=== PATIENT | female | born 1960 | race Hispanic/Latino ===

== ENCOUNTER 2020-09-13 11:20 | Emergency (ER) | payer SELFPAY ==
[2020-09-13 14:15] LABS: Absolute Lymphocytes (CBC) 0.6 K/uL (0.7-4.9); Basophils % 0.5 % (0-1.3); Hematocrit 32.9 % (36.0-45.0); Lymphocytes % 12.2 % (15.3-44.8); MPV 8.7 fL (7.6-11.3); RBC Red Blood Cell Count 3.38 M/uL (3.86-4.86)
[2020-09-13 14:18] LABS: Protime INR 1.07
[2020-09-13] MEDS ORDERED: AZITHROMYCIN IV 500 MG in NA CHLORIDE 0.9% 250 ML IVPB ONE (14:30)
[2020-09-13 14:34] LABS: ALT/SGPT 46 U/L (12-78); AST/SGOT 56 U/L (15-37); Albumin 3.1 g/dL (3.4-5.0); Alkaline Phosphatase 73 U/L (45-117); BUN Blood Urea Nitrogen 14 mg/dL (7-18); Bicarbonate 27 mmol/L (21-32); Bilirubin Direct 0.2 mg/dL (0-0.2); Bilirubin Total 0.5 mg/dL (0.2-1.0); Glucose Level 95 mg/dL (74-106); Lipase 107 U/L (73-393); Potassium 3.7 mmol/L (3.5-5.1); Sodium Level 142 mmol/L (136-145); Troponin (Emerg Dept Use Only) < 0.02 ng/mL (0.0-0.045)
[2020-09-13] MEDS ORDERED: NA CHLORIDE 0.9% 1,000 ML ONE (14:38)
[2020-09-13] MEDS ORDERED: METHYLPREDNISOLONE 125 MG INJ ONE (14:38)
[2020-09-13] MEDS ORDERED: FAMOTIDINE 20 MG/2 ML VIAL IV ONE (14:38)
--- NOTE | 2020-09-13 14:44 | RAD REPORT ---
EXAM DESCRIPTION: RAD - Chest Single View - 09/13/2020 2:23 pm CLINICAL HISTORY: CONGESTION, COVID positive family member COMPARISON: None TECHNIQUE: AP portable chest image was obtained 09/13/2020 2:23 pm . FINDINGS: Lung volumes are low. Patchy interstitial and alveolar opacities are present. COVID-19 pne umonia is certainly possible and would be a primary consideration. No significant failure or volume o verload. Heart and vasculature are normal. No measurable pleural effusion and no pneumothorax. No acu te bony abnormality seen. No acute aortic findings suspected. IMPRESSION: Patchy pneumonia changes are present worse in the right lung field. Given the history and current clinical environment, COVID-19 pneumonia is most likely.
--- NOTE | 2020-09-13 15:09 | EDPHYS ---
Physician Documentation [facility] Name: Tangela Presley Age: 59 yrs Sex: Female : 1960 Arrival Date: 09/13/2020 Time: 11:22 Bed 14 Private MD: ED Physician Brett Roberto HPI: 09/13 15:08 This 59 yrs old Female presents to ER via Wheelchair with complaints of ma2 Decreased Appetite, Fatigue- covid+, Cough. 15:08 Onset: The symptoms/episode began/occurred gradually, 3 day(s) ago. Severity of ma2 symptoms: At their worst the symptoms were moderate, in the emergency department the symptoms are unchanged. Associated signs and symptoms: Pertinent negatives: ear ache, nausea. The patient has not experienced similar symptoms in the past. Historical: - Allergies: 12:35 No Known Allergies; iw - Home Meds: 12:35 gabapentin 300 mg oral cap 1 cap 3 times per day [Active]; sulfasalazine 500 mg Oral iw tab 1 tab 4 times per day [Active]; - PMHx: 12:35 Arthritis; iw - PSHx: 12:35 Hysterectomy; iw - Immunization history:: Adult Immunizations not up to date. - Social history:: Smoking status: Patient denies any tobacco usage or history of. Patient/guardian denies using alcohol, street drugs, The patient lives with family. - Family history:: not pertinent. - Hospitalizations: : No recent hospitalization is reported. ROS: 15:08 Constitutional: Negative for fever, chills, and weight loss. ma2 15:08 All other systems are negative. Exam: 15:08 Constitutional: This is a well developed, well nourished patient who is awake, alert, ma2 and in no acute distress. Head/Face: Normocephalic, atraumatic. Eyes: Pupils equal round and reactive to light, extra-ocular motions intact. Lids and lashes normal. Conjunctiva and sclera are non-icteric and not injected. Cornea within normal limits. Periorbital areas with no swelling, redness, or edema. ENT: Nares patent. No nasal discharge, no septal abnormalities noted. Tympanic membranes are normal and external auditory canals are clear. Oropharynx with no redness, swelling, or masses, exudates, or evidence of obstruction, uvula midline. Mucous membranes moist. Neck: Trachea midline, no thyromegaly or masses palpated, and no cervical lymphadenopathy. Supple, full range of motion without nuchal rigidity, or vertebral point tenderness. No Meningismus. Chest/axilla: Normal chest wall appearance and motion. Nontender with no deformity. No lesions are appreciated. Cardiovascular: Regular rate and rhythm with a normal S1 and S2. No gallops, murmurs, or rubs. Normal PMI, no JVD. No pulse deficits. Respiratory: Lungs have equal breath sounds bilaterally, clear to auscultation and percussion. No rales, rhonchi or wheezes noted. No increased work of breathing, no retractions or nasal flaring. Abdomen/GI: Soft, non-tender, with normal bowel sounds. No distension or tympany. No guarding or rebound. No evidence of tenderness throughout. MS/ Extremity: Pulses equal, no cyanosis. Neurovascular intact. Full, normal range of motion. Neuro: Awake and alert, GCS 15, oriented to person, place, time, and situation. Cranial nerves II-XII grossly intact. Motor strength 5/5 in all extremities. Sensory grossly intact. Cerebellar exam normal. Normal gait. Vital Signs: 12:31 BP 126 / 64; Pulse 75; Resp 16; Temp 98.5; Pulse Ox 95% ; iw 13:30 BP 126 / 77; Pulse 71; Resp 16 S; Pulse Ox 95% on R/A; ca1 14:30 BP 125 / 68; Pulse 73; Resp 16 S; Pulse Ox 96% on R/A; ca1 15:30 BP 124 / 58; Pulse 84; Resp 16 S; Pulse Ox 98% on R/A; ca1 16:30 BP 119 / 58; Pulse 89; Resp 18 S; Pulse Ox 96% on R/A; ca1 MDM: 12:57 Patient medically screened. ma2 15:08 Differential Diagnosis: Bronchitis Influenza Upper Respiratory Infection Sinusitis. ma2 Data reviewed: vital signs, nurses notes. Counseling: I had a detailed discussion with the patient and/or guardian regarding: the historical points, exam findings, and any diagnostic results supporting the discharge/admit diagnosis, the presence of at least one elevated blood pressure reading (>120/80) during this emergency department visit, the need for outpatient follow up. Response to treatment: the patient's symptoms have markedly improved after treatment. 09/13 13:35 Order name: BMP [facility] 09/13 13:35 Order name: CBC with Diff ks2 09/13 13:35 Order name: Flu ks2 09/13 13:35 Order name: Lactate ks2 09/13 13:35 Order name: LFT's; Complete Time: 14:40 ks2 09/13 13:35 Order name: Lipase; Complete Time: 14:40 ks2 09/13 13:35 Order name: Procalcitonin [facility] 09/13 13:35 Order name: PT-INR; Complete Time: 14:20 ks2 09/13 13:35 Order name: Ptt, Activated; Complete Time: 14:20 [facility] 09/13 13:35 Order name: Strep [facility] 09/13 13:35 Order name: Troponin (emerg Dept Use Only); Complete Time: 14:40 ks2 09/13 13:35 Order name: Urine Microscopic Only [facility] 09/13 13:36 Order name: Basic Metabolic Panel; Complete Time: 14:40 [facility] 09/13 13:35 Order name: CXR XRAY ks2 09/13 13:35 Order name: EKG; Complete Time: 13:37 ks2 09/13 13:35 Order name: Cardiac monitoring; Complete Time: 14:12 [facility] 09/13 13:35 Order name: Droplet/Contact Precautions; Complete Time: 14:12 [facility] 09/13 13:36 Order name: CBC with Automated Diff; Complete Time: 14:20 [facility] 09/13 13:36 Order name: Lactate; Complete Time: 14:40 [facility] 09/13 14:20 Order name: Blood Culture Adult (2) ks2 09/13 14:21 Order name: Blood Culture [facility] 09/13 15:09 Order name: Urine Dipstick--Ancillary (enter results) bd 09/13 15:48 Order name: COVID-19/FLU A+B [facility] 09/13 16:01 Order name: Throat Culture [facility] 09/13 13:35 Order name: EKG - Nurse/Tech; Complete Time: 15:12 ks2 09/13 13:35 Order name: IV Start; Complete Time: 14:13 ks2 09/13 13:35 Order name: Labs collected and sent; Complete Time: 14:13 ks09/13 13:35 Order name: O2 Per Protocol; Complete Time: 14:12 ks09/13 13:35 Order name: O2 Sat Monitoring; Complete Time: 14:20 09/13 13:35 Order name: Urine Dipstick-Ancillary (obtain specimen); Complete Time: 15:12 ma Administered Medications: 14:10 Drug: NS 0.9% 1000 ml Route: IV; Rate: 1 bolus; Site: right wrist; ca1 15:20 Follow up: Response: No adverse reaction; IV Status: Completed infusion; IV Intake: ca1 1000ml 14:11 Drug: Pepcid 20 mg Route: IVP; Site: right wrist; ca1 15:00 Follow up: Response: No adverse reaction ca1 14:13 Drug: SOLU-Medrol 125 mg Route: IVP; Site: right wrist; ca1 15:00 Follow up: Response: No adverse reaction; Marked relief of symptoms ca1 15:30 Drug: AZITHromycin 500 mg Route: IVPB; Infused Over: 1 hrs; Site: right forearm; ca1 16:30 Follow up: Response: No adverse reaction; IV Status: Completed infusion; IV Intake: ca1 500ml Disposition: 09/13/20 15:09 Discharged to Home. Impression: Coronavirus infection, unspecified, Dehydration. - Condition is Stable. - Discharge Instructions: Dehydration, Adult, COVID-19. - Prescriptions for Diclofenac Sodium 75 mg Oral Tablet Sustained Release - take 1 tablet by ORAL route 2 times per day; 30 tablet. Zithromax Z- Yasmani 250 mg Oral Tablet - take 1 tablet by ORAL route as directed for 5 days Day 1 - take two (2) tablets one time. Day 2, 3, 4 , 5 take one (1) tablet once daily.; 6 tablet. Medrol (Yasmani) 4 mg Oral Tablets, Dose Pack - take 1 tablet by ORAL route as directed - follow package instructions; 1 packet. Albuterol Sulfate 90 mcg/actuation - inhale 1-2 puff by INHALATION route every 4-6 hours; 1 Inhaler. Pepcid 20 mg Oral Tablet - take 1 tablet by ORAL route once daily for 10 days; 10 tablet. Zofran 4 mg Oral Tablet - take 1 tablet by ORAL route every 12 hours As needed; 20 tablet. - Medication Reconciliation Form, Thank You Letter, Antibiotic Education, Prescription Opioid Use form. - Follow up: Private Physician; When: Tomorrow; Reason: Continuance of care. Signatures: Dispatcher [employer] EDMT Nancy Damian, XANDER RN iw Brett Roberto MD MD ma2 Juju Hernandez RN RN ca1 Corrections: (The following items were deleted from the chart) 14:20 13:35 Womack ordered. ma2 aa5 14:33 13:36 Influenza Screen (A ordered. EDMS EDMS 14:33 13:37 CORONAVIRUS+MR.LAB.BRZ ordered. EDMS EDMS 16:41 15:09 09/13/2020 15:09 Discharged to Home. Impression: Coronavirus infection, ca1 unspecified; Dehydration. Condition is Stable. Prescriptions for Diclofenac Sodium 75 mg Oral Tablet Sustained Release - take 1 tablet by ORAL route 2 times per day; 30 tablet, Zithromax Z-Yasmani 250 mg Oral Tablet - take 1 tablet by ORAL route as directed for 5 days Day 1 - take two (2) tablets one time. Day 2, 3, 4 , 5 take one (1) tablet once daily.; 6 tablet, Medrol (Yasmani) 4 mg Oral Tablets, Dose Pack - take 1 tablet by ORAL route as directed - follow package instructions; 1 packet, Albuterol Sulfate 90 mcg/actuation - inhale 1-2 puff by INHALATION route every 4-6 hours; 1 Inhaler, Pepcid 20 mg Oral Tablet - take 1 tablet by ORAL route once daily for 10 days; 10 tablet, Zofran 4 mg Oral Tablet - take 1 tablet by ORAL route every 12 hours As needed; 20 tablet. and Forms are Medication Reconciliation Form, Thank You Letter, Antibiotic Education, Prescription Opioid Use. Follow up: Private Physician; When: Tomorrow; Reason: Continuance of care. ma2
--- NOTE | 2020-09-13 15:09 | ER ---
Nurse's Notes [facility] Name: Tangela Presley Age: 59 yrs Sex: Female : 1960 Arrival Date: 09/13/2020 Time: 11:22 Bed 14 Private MD: Diagnosis: Coronavirus infection, unspecified;Dehydration Presentation: 09/13 12:31 Chief complaint: Patient states: is COVID positive, pt has been feeling tired, iw weak, fever, no appetite, n/v , also has cough. Coronavirus screen: cough unrelated to allergies. Ebola Screen: Patient negative for fever greater than or equal to 101.5 degrees Fahrenheit, and additional compatible Ebola Virus Disease symptoms Patient denies exposure to infectious person. Patient denies travel to an Ebola-affected area in the 21 days before illness onset. No symptoms or risks identified at this time. Initial Sepsis Screen: Does the patient meet any 2 criteria? No. Patient's initial sepsis screen is negative. Does the patient have a suspected source of infection? No. Patient's initial sepsis screen is negative. Risk Assessment: Do you want to hurt yourself or someone else? Patient reports no desire to harm self or others. Onset of symptoms was September 05, 2020. 12:31 Method Of Arrival: Wheelchair iw 12:31 Acuity: JOSE 3 iw Historical: - Allergies: 12:35 No Known Allergies; iw - Home Meds: 12:35 gabapentin 300 mg oral cap 1 cap 3 times per day [Active]; sulfasalazine 500 mg Oral iw tab 1 tab 4 times per day [Active]; - PMHx: 12:35 Arthritis; iw - PSHx: 12:35 Hysterectomy; iw - Immunization history:: Adult Immunizations not up to date. - Social history:: Smoking status: Patient denies any tobacco usage or history of. Patient/guardian denies using alcohol, street drugs, The patient lives with family. - Family history:: not pertinent. - Hospitalizations: : No recent hospitalization is reported. Screenin:50 Abuse screen: Denies threats or abuse. Denies injuries from another. Nutritional ca1 screening: No deficits noted. Tuberculosis screening: No symptoms or risk factors identified. Fall Risk None identified. Assessment: 12:50 General: Appears in no apparent distress. comfortable, Behavior is calm, cooperative, ca1 appropriate for age. Pain: Denies pain. Neuro: Level of Consciousness is awake, alert, obeys commands, Oriented to person, place, time, situation. Cardiovascular: Heart tones S1 S2 present Capillary refill < 3 seconds Patient's skin is warm and dry. Rhythm is sinus rhythm. Respiratory: Reports cough that is Airway is patent Respiratory effort is even, unlabored, Respiratory pattern is regular, symmetrical, Breath sounds are clear bilaterally. GI: Abdomen is flat, non-distended, Bowel sounds present X 4 quads. Abd is soft and non tender X 4 quads. Reports anorexia, diarrhea, nausea, vomiting. : No signs and/or symptoms were reported regarding the genitourinary system. EENT: No signs and/or symptoms were reported regarding the EENT system. Derm: Skin is intact, is healthy with good turgor, Skin is pink, warm \T\ dry. Musculoskeletal: Circulation, motion, and sensation intact. Capillary refill < 3 seconds. 12:50 General: Reports fever for feeling ill for fatigue for >3 days. ca1 13:50 Reassessment: Patient appears in no apparent distress at this time. No changes from ca1 previously documented assessment. Patient and/or family updated on plan of care and expected duration. Pain level reassessed. Patient is alert, oriented x 3, equal unlabored respirations, skin warm/dry/pink. 14:35 Reassessment: Patient appears in no apparent distress at this time. No changes from ca1 previously documented assessment. Patient and/or family updated on plan of care and expected duration. Pain level reassessed. Patient is alert, oriented x 3, equal unlabored respirations, skin warm/dry/pink. 15:12 Reassessment: Patient appears in no apparent distress at this time. Patient and/or ca1 family updated on plan of care and expected duration. Pain level reassessed. Patient is alert, oriented x 3, equal unlabored respirations, skin warm/dry/pink. Discharge pending completion of antibiotics. 16:15 Reassessment: Patient appears in no apparent distress at this time. Patient and/or ca1 family updated on plan of care and expected duration. Pain level reassessed. Patient is alert, oriented x 3, equal unlabored respirations, skin warm/dry/pink. Vital Signs: 12:31 BP 126 / 64; Pulse 75; Resp 16; Temp 98.5; Pulse Ox 95% ; iw 13:30 BP 126 / 77; Pulse 71; Resp 16 S; Pulse Ox 95% on R/A; ca1 14:30 BP 125 / 68; Pulse 73; Resp 16 S; Pulse Ox 96% on R/A; ca1 15:30 BP 124 / 58; Pulse 84; Resp 16 S; Pulse Ox 98% on R/A; ca1 16:30 BP 119 / 58; Pulse 89; Resp 18 S; Pulse Ox 96% on R/A; ca1 ED Course: 11:22 Patient arrived in ED. as 12:33 Triage completed. iw 12:36 Arm band placed on. iw 12:49 Juju Hernandez, RN is Primary Nurse. ca1 12:50 Patient has correct armband on for positive identification. Placed in gown. Bed in low ca1 position. Call light in reach. Side rails up X2. campus monitor on. Pulse ox on. NIBP on. Warm blanket given. 12:57 Brett Roberto MD is Attending Physician. ma2 14:08 Inserted saline lock: 22 gauge in right wrist, using aseptic technique. Blood collected.ca1 14:08 Initial lab(s) drawn, by ma, sent to lab. First set of blood cultures drawn by me. ca1 14:23 CXR XRAY In Process Unspecified. EDMS 14:30 Second set of blood cultures drawn by ma. ca1 14:33 Blood Culture Sent. ca1 14:33 Blood Culture Adult (2) Sent. ca1 16:40 No provider procedures requiring assistance completed. IV discontinued, intact, ca1 bleeding controlled, No redness/swelling at site. Pressure dressing applied. Administered Medications: 14:10 Drug: NS 0.9% 1000 ml Route: IV; Rate: 1 bolus; Site: right wrist; ca1 15:20 Follow up: Response: No adverse reaction; IV Status: Completed infusion; IV Intake: ca1 1000ml 14:11 Drug: Pepcid 20 mg Route: IVP; Site: right wrist; ca1 15:00 Follow up: Response: No adverse reaction ca1 14:13 Drug: SOLU-Medrol 125 mg Route: IVP; Site: right wrist; ca1 15:00 Follow up: Response: No adverse reaction; Marked relief of symptoms ca1 15:30 Drug: AZITHromycin 500 mg Route: IVPB; Infused Over: 1 hrs; Site: right forearm; ca1 16:30 Follow up: Response: No adverse reaction; IV Status: Completed infusion; IV Intake: ca1 500ml Intake: 15:20 IV: 1000ml; Total: 1000ml. ca1 16:30 IV: 500ml; Total: 1500ml. ca1 Outcome: 15:09 Discharge ordered by . royal 16:40 Discharged to home ambulatory, with significant other. ca1 16:40 Condition: stable 16:40 Discharge instructions given to patient, Instructed on discharge instructions, follow up and referral plans. medication usage, Demonstrated understanding of instructions, follow-up care, medications, Prescriptions given X x6 16:41 Patient left the ED. ca1 Signatures: Dispatcher [employer] EDMS Tricia Gaxiola Irene, RN RN iw Brett Roberto MD MD ma2 Acob, Cheryl, RN RN ca1 Corrections: (The following items were deleted from the chart) 14:37 12:50 GI: Abdomen is flat, non-distended, Bowel sounds present X 4 quads. Abd is soft ca1 and non tender X 4 quads. Reports anorexia, ca1
[2020-09-13 15:47] LABS: SARS-COV-2 RT PCR POSITIVE (NEGATIVE)
[2020-09-13 16:15] LABS: Urine Bacteria <20 /HPF (<20); Urine RBC <5 /HPF (NONE SEEN)
[2020-09-13 16:16] LABS: Urine Amorphous Sediment 2+ /HPF (NONE SEEN); Urine Mucus 2+ /HPF (NONE SEEN)
[2020-09-13 16:39] LABS: Urine Blood NEGATIVE (NEG); Urine Glucose NEGATIVE (NEG); Urine Protein NEGATIVE (NEG); Urine Specific Gravity 1.015 (1.005-1.030); Urine pH 6.5 (5.0-7.0)
[2020-09-13 16:47] VITALS: TEMP 98.5
[2020-09-13 16:52] VITALS: BP 119/58; O2SAT 96
--- NOTE | 2020-09-14 12:18 | EKG ---
Test Date: 2020-09-13 Test Time: 14:46:16 Binding Stitcher: MARILY MEASUREMENT RESULTS: Intervals: Rate: 80 GA: 128 QRSD: 76 QT: 394 QTc: 454 Amity: P: 38 GA: 128 QRS: 26 T: 31 INTERPRETIVE STATEMENTS: Normal sinus rhythm Junctional ST depression, probably normal Borderline ECG No previous ECG available for comparison Electronically Signed On 09-14-20 12:15:25 [employer] T[employer] EXAMINER by Mehul Skelton
== END 2020-09-13 16:41 | disposition home or self-care (01) ==
LOC: ER 11:20
DX: U07.1 COVID-19 (principal); E86.0 Dehydration; M19.90 Unspecified osteoarthritis, unspecified site
CPT/HCPCS: 0240U; 36415; 71045; 80048; 80076; 81003; 81015; 83605; 83690; 84145; 84484; 85025; 85610; 85730; 87040; 87070; 87081; 93005; 96361; 96365; 96375; 99284; J0456; J2930; J7030; J7050